=== PATIENT | female | born 1985 | race Caucasian/White ===

== ENCOUNTER → 2019-05-30 17:47 | Observation (INO) ==
[2019-05-30 15:55] LABS: Basophils % 0.3 %; Eosinophils # 0.1 K/mcL (0.0-0.6); Eosinophils % 0.5 %; Hematocrit 39.5 % (35.3-44.9); Hemoglobin 13.1 g/dL (11.5-15.4); Immature Granulocytes % 0.4 % (0-4); Lymphocytes # 2.1 K/mcL (0.6-4.6); Lymphocytes % 18.1 %; Mean Corpuscular HGB Conc 33.2 g/dL (31.6-35.5); Mean Corpuscular Hemoglobin 30.8 pg (28.0-33.3); Mean Corpuscular Volume 92.7 fL (83.0-100.0); Mean Platelet Volume 10.4 fL (9.4-12.4); Monocytes # 1.1 K/mcL (0.0-1.3); Monocytes % 9.8 %; Neutrophils # 8.1 K/mcL (1.6-8.9); Platelet Count 253 K/mcL (140-400); Red Blood Count 4.26 M/mcL (3.82-4.97); Red Cell Distribution Width 13.3 % (11.5-14.5); Segmented Neutrophils % 70.9 %; White Blood Count 11.5 K/mcL (4.3-11.1)
[2019-05-30 16:03] LABS: Protein/Creatinine Ratio,Urine 0.35 mg/mg (0.00-0.20)
[2019-05-30 16:17] LABS: Alanine Aminotransferase 9 Units/L (7-52); Aspartate Amino Transferase 10 Units/L (13-39); BUN/Creatinine Ratio 16 (6-26); Blood Urea Nitrogen 6 mg/dL (6-20); Lactate Dehydrogenase 138 Units/L (140-271); Uric Acid 4.6 mg/dL (2.3-7.6); eGFR For African Americans > 60 (> 60); eGFR For Non-African Americans > 60 (> 60)
[~2019-05-30 17:47] MED LIST: Acetaminophen 325 MG TABLET PO ONE
[2019-05-31 10:09] LABS: Amphetamine Screen,Urine Negative ng/mL (Cutoff=1000); Barbiturate Screen,Urine Negative ng/mL (Cutoff=200); Benzodiazepines Screen,Urine Negative ng/mL (Cutoff=200); Cannabinoid Screen,Urine Negative ng/mL (Cutoff = 50); Cocaine Screen,Urine Negative ng/mL (Cutoff= 300); Opiate Screen,Urine Negative ng/mL (Cutoff=300); Phencyclidine Screen,Urine Negative ng/mL (Cutoff=25)
== END | disposition home or self-care (01) ==
LOC: 1NENULAB
PROVIDERS: ADMIT Obstetrics & Gynecology; ATTEND Obstetrics & Gynecology

== ENCOUNTER 2019-06-21 11:00 | Inpatient (IN) ==
[2019-06-21] MEDS ORDERED: Naloxone 0.4 MG/ML INJ IVP PRN (11:23)
[2019-06-21] MEDS ORDERED: Metoclopramide 10 MG/2 ML VIAL IVP PRN ×2 (11:23→17:28)
[2019-06-21] MEDS ORDERED: Famotidine 20 MG/2 ML VIAL IVP PRN (11:23)
[2019-06-21] MEDS ORDERED: Ringers Solution, Lactated 1,000 ML IVC SCH (11:30)
[2019-06-21 12:38] LABS: Basophils # 0.1 K/mcL (0.0-0.2); Basophils % 0.4 %; Eosinophils % 0.3 %; Hemoglobin 14.7 g/dL (11.5-15.4); Immature Granulocytes % 0.4 % (0-4); Lymphocytes % 17.7 %; Mean Corpuscular Hemoglobin 30.6 pg (28.0-33.3); Mean Corpuscular Volume 87.5 fL (83.0-100.0); Mean Platelet Volume 10.5 fL (9.4-12.4); Monocytes # 0.9 K/mcL (0.0-1.3); Monocytes % 7.6 %; Neutrophils # 8.3 K/mcL (1.6-8.9); Platelet Count 281 K/mcL (140-400); Red Cell Distribution Width 13.7 % (11.5-14.5); Segmented Neutrophils % 73.6 %; White Blood Count 11.3 K/mcL (4.3-11.1)
[2019-06-21 12:49] LABS: Amphetamine Screen,Urine Negative ng/mL (Cutoff=1000); Barbiturate Screen,Urine Negative ng/mL (Cutoff=200); Benzodiazepines Screen,Urine Negative ng/mL (Cutoff=200); Cannabinoid Screen,Urine Negative ng/mL (Cutoff = 50); Cocaine Screen,Urine Negative ng/mL (Cutoff= 300); Opiate Screen,Urine Negative ng/mL (Cutoff=300); Phencyclidine Screen,Urine Negative ng/mL (Cutoff=25)
[2019-06-21] MEDS ORDERED: CeFAZolin Premix DUPLEX 2,000 MG/50 ML BAG IVPB ONE (13:06)
[2019-06-21] MEDS ORDERED: *HR* Morphine Sulfate/PF 10 MG/10 ML AMPUL ONE (13:14)
[2019-06-21] MEDS ORDERED: *HR* FentaNYL (PF) 100 MCG/2 ML VIAL ONE (13:15)
[2019-06-21] MEDS ORDERED: *HR* Oxytocin 10 UNIT/ML VIAL IM ONE (13:16)
[2019-06-21] MEDS ORDERED: Ondansetron 4 MG/2 ML VIAL ONE (14:01)
[2019-06-21] MEDS ORDERED: Ringers Solution, Lactated 1,000 ML ONE (14:11)
[2019-06-21] MEDS ORDERED: Ondansetron 4 MG/2 ML VIAL IVP PRN ×2 (15:11→17:28)
[2019-06-21] MEDS ORDERED: *HR* HYDROmorphone (PF) 1 MG/ML SYRINGE IVP PRN (15:11)
[2019-06-21] MEDS ORDERED: Ketorolac 30 MG/ML VIAL IVP PRN (15:12)
[2019-06-21] MEDS ORDERED: Oxytocin 20 units/ LR 1000 mL 20 UNIT/1,000 ML BAG IVC SCH (17:28)
[2019-06-21] MEDS ORDERED: Sennosides 8.6 MG TABLET PO PRN (17:28)
[2019-06-21] MEDS: metroNIDAZOLE 500 MG TABLET PO SCH (19:59)
[2019-06-21] MEDS: Ibuprofen 600 MG TABLET PO PRN (19:59)
[2019-06-21] MEDS: cephALEXin 500 MG CAPSULE PO SCH (19:59)
[2019-06-22] MEDS: Simethicone 80 MG TAB.CHEW PO PRN ×2 (01:29→20:29)
[2019-06-22] MEDS: *HR* OxyCODONE/APAP 5/325 TABLET PO PRN ×5 (06:04→23:52)
[2019-06-22] MEDS: Ibuprofen 600 MG TABLET PO PRN ×3 (06:04→18:41)
[2019-06-22 06:37] LABS: Basophils # 0.1 K/mcL (0.0-0.2); Basophils % 0.4 %; Eosinophils # 0.1 K/mcL (0.0-0.6); Eosinophils % 0.4 %; Hematocrit 40.2 % (35.3-44.9); Hemoglobin 13.2 g/dL (11.5-15.4); Immature Granulocytes % 0.5 % (0-4); Lymphocytes # 1.7 K/mcL (0.6-4.6); Lymphocytes % 13.2 %; Mean Corpuscular HGB Conc 32.8 g/dL (31.6-35.5); Mean Corpuscular Hemoglobin 30.9 pg (28.0-33.3); Mean Platelet Volume 10.2 fL (9.4-12.4); Monocytes # 1.3 K/mcL (0.0-1.3); Monocytes % 9.7 %; Platelet Count 246 K/mcL (140-400); Red Blood Count 4.27 M/mcL (3.82-4.97); Red Cell Distribution Width 13.7 % (11.5-14.5); Segmented Neutrophils % 75.8 %; White Blood Count 13.2 K/mcL (4.3-11.1)
[2019-06-22 06:38] LABS: Mean Corpuscular Volume 94.1 fL (83.0-100.0)
[2019-06-22] MEDS: Prenatal Vit/FA 1 EACH TABLET PO SCH (10:03)
[2019-06-22] MEDS: cephALEXin 500 MG CAPSULE PO SCH ×3 (10:04→20:28)
[2019-06-22] MEDS: metroNIDAZOLE 500 MG TABLET PO SCH ×2 (10:04→20:28)
[2019-06-22] MEDS ORDERED: Lanolin 7 G OINT...G. TP PRN (20:42)
[2019-06-23] MEDS: Ibuprofen 600 MG TABLET PO PRN ×2 (01:47→08:05)
[2019-06-23] MEDS: *HR* OxyCODONE/APAP 5/325 TABLET PO PRN ×3 (05:03→13:43)
[2019-06-23] MEDS: Simethicone 80 MG TAB.CHEW PO PRN (08:06)
[2019-06-23] MEDS: metroNIDAZOLE 500 MG TABLET PO SCH (08:06)
[2019-06-23] MEDS: Prenatal Vit/FA 1 EACH TABLET PO SCH (08:06)
[2019-06-23] MEDS: cephALEXin 500 MG CAPSULE PO SCH (08:06)
[2019-06-23 08:25] VITALS: BP 118/81
== END 2019-06-23 14:00 | disposition home or self-care (01) | DRG 788 ==
LOC: 1NENULAB 11:00 → 1NENUOBS 17:27
PROVIDERS: ADMIT Obstetrics & Gynecology; ATTEND Obstetrics & Gynecology